=== PATIENT | female | born 1965 | race Caucasian/White ===

== ENCOUNTER 2017-03-16 07:20 | Observation (INO) | payer BC, OTHER ==
[2017-03-16] MEDS ORDERED: NITROGLYCERIN OINT 1 INCH/GM PACKET TOPICAL STA (07:42)
[2017-03-16] MEDS ORDERED: ASPIRIN 81 MG PO STA (07:42)
[2017-03-16] MEDS ORDERED: NITROGLYCERIN SL TABS 0.4 MG TAB SUBLINGUAL STA (07:42)
[2017-03-16] MEDS ORDERED: IPRATROPIUM-ALBUTEROL 3 ML NEB INHALATION STA (07:43)
--- NOTE | 2017-03-16 07:46 | ED ---
General Adult HPI - General Chief complaint: Extremity Problem,Nontraumatic Stated complaint: BACK AND LEG PAIN Time Seen by Provider: 03/16/17 07:30 Source: patient, RN notes reviewed Mode of arrival: ambulatory Limitations: no limitations - History of Present Illness Initial comments: Patient is a pleasant 51-year-old female presenting to the emergency Department with multiple complaints. Patient complains of a boil in her right genital region. Patient states this is been bothering her for a couple of days. Patient also complains of chronic back pain with radiation to her right leg. Patient states this is a chronic problem for her however somewhat worse than normal. No leg swelling. Patient also complains of some chest tightness. Patient states this started yesterday. Patient does feel short of breath. Patient believes her chest tightness may be from her shortness of breath. Patient feels like she is wheezing. Patient is a smoker. Patient has no known previous diagnosis of asthma or COPD. - Related Data Home Medications Medication Instructions Recorded Confirmed Ibuprofen [Motrin] 200 - 800 mg PO Q6HR PRN 03/16/17 03/16/17 Vitamin B Complex 1 cap PO DAILY 03/16/17 03/16/17 Allergies Allergy/AdvReac Type Severity Reaction Status Date / Time No Known Allergies Allergy Verified 03/16/17 08:13 Review of Systems ROS Statement: Those systems with pertinent positive or pertinent negative responses have been documented in the HPI. ROS Other: All systems not noted in ROS Statement are negative. Constitutional: Denies: fever Eyes: Denies: eye pain ENT: Denies: ear pain Respiratory: Reports: cough, dyspnea Cardiovascular: Reports: chest pain Endocrine: Reports: fatigue Gastrointestinal: Denies: abdominal pain Genitourinary: Denies: dysuria Musculoskeletal: Reports: back pain Skin: Reports: lesions Neurological: Denies: weakness Past Medical History Past Medical History: No Reported History History of Any Multi-Drug Resistant Organisms: None Reported Past Surgical History: Hysterectomy, Tonsillectomy, Tubal Ligation Past Psychological History: No Psychological Hx Reported Smoking Status: Current every day smoker Past Alcohol Use History: Rare Past Drug Use History: Marijuana General Exam Limitations: no limitations General appearance: alert, in no apparent distress Head exam: Present: atraumatic Eye exam: Present: normal appearance Neck exam: Present: normal inspection Respiratory exam: Present: wheezes Cardiovascular Exam: Present: regular rate, normal rhythm Expanded Peripheral pulses: 2+: Radial (R), Radial (L), Dorsalis Pedis (R), Dorsalis Pedis (L) GI/Abdominal exam: Present: soft. Absent: distended, tenderness External exam: Present: other (Lateral to the right labia there is a small pustule that patient opens as she is touching it. There is purulent discharge. RN Reanna is present.) Extremities exam: Present: normal inspection. Absent: pedal edema, calf tenderness Back exam: Present: tenderness (Tenderness to the lower lumbar spine.) Neurological exam: Present: alert Psychiatric exam: Present: normal affect, normal mood Skin exam: Present: normal color Course Vital Signs 03/16/17 03/16/17 03/16/17 07:26 08:02 08:05 Temperature 97.6 F Pulse Rate 99 81 Respiratory 18 18 Rate Blood Pressure 168/76 O2 Sat by Pulse 96 Oximetry 03/16/17 03/16/17 03/16/17 08:09 08:10 09:10 Temperature Pulse Rate 89 89 92 Respiratory 18 16 Rate Blood Pressure 146/81 118/57 O2 Sat by Pulse 95 99 Oximetry EKG Findings - EKG Comments: EKG Findings:: Normal sinus rhythm 93. CA 120. QRS 78. QT 336. QTc 442. Normal axis. Normal QRS. Nonspecific ST-T. Medical Decision Making - Medical Decision Making Patient reexamined and improved. Patient has continued wheezing however chest discomfort has resolved. Patient has continued lower back discomfort and requests pain medication for that. Case was discussed in detail with Dr. Bhatti, who will admit for Dr. Valenzuela. - Lab Data Result diagrams: 03/16/17 07:45 03/16/17 07:45 Lab Results 03/16/17 03/16/17 03/16/17 Range/Units 07:45 07:45 07:45 WBC 8.2 (3.8-10.6) k/uL RBC 4.92 (3.80-5.40) m/uL Hgb 15.7 (11.4-16.0) gm/dL Hct 47.6 H (34.0-46.0) % MCV 96.7 (80.0-100.0) fL MCH 31.9 (25.0-35.0) pg MCHC 33.0 (31.0-37.0) g/dL RDW 14.0 (11.5-15.5) % Plt Count 156 (150-450) k/uL Neutrophils % 74 % Lymphocytes % 14 % Monocytes % 7 % Eosinophils % 3 % Basophils % 1 % Neutrophils # 6.0 (1.3-7.7) k/uL Lymphocytes # 1.1 (1.0-4.8) k/uL Monocytes # 0.6 (0-1.0) k/uL Eosinophils # 0.3 (0-0.7) k/uL Basophils # 0.0 (0-0.2) k/uL PT (9.0-12.0) sec INR (<1.2) APTT (22.0-30.0) sec D-Dimer (<0.60) mg/L FEU Sodium 138 (137-145) mmol/L Potassium 4.1 (3.5-5.1) mmol/L Chloride 105 (98-107) mmol/L Carbon Dioxide 22 (22-30) mmol/L Anion Gap 11 mmol/L BUN 13 (7-17) mg/dL Creatinine 0.75 (0.52-1.04) mg/dL Est GFR (MDRD) Af Amer >60 (>60 ml/min/1.73 sqM) Est GFR (MDRD) Non-Af >60 (>60 ml/min/1.73 sqM) Glucose 88 (74-99) mg/dL Calcium 9.8 (8.4-10.2) mg/dL Magnesium 1.9 (1.6-2.3) mg/dL Total Bilirubin 0.6 (0.2-1.3) mg/dL AST 31 (14-36) U/L ALT 67 H (9-52) U/L Alkaline Phosphatase 99 (38-126) U/L Total Creatine Kinase 93 (30-135) U/L CK-MB (CK-2) 1.3 (0.0-2.4) ng/mL CK-MB (CK-2) Rel Index 1.4 Troponin I <0.012 (0.000-0.034) ng/mL NT-Pro-B Natriuret Pep pg/mL Total Protein 8.1 (6.3-8.2) g/dL Albumin 4.8 (3.5-5.0) g/dL 03/16/17 03/16/17 Range/Units 07:45 07:45 WBC (3.8-10.6) k/uL RBC (3.80-5.40) m/uL Hgb (11.4-16.0) gm/dL Hct (34.0-46.0) % MCV (80.0-100.0) fL MCH (25.0-35.0) pg MCHC (31.0-37.0) g/dL RDW (11.5-15.5) % Plt Count (150-450) k/uL Neutrophils % % Lymphocytes % % Monocytes % % Eosinophils % % Basophils % % Neutrophils # (1.3-7.7) k/uL Lymphocytes # (1.0-4.8) k/uL Monocytes # (0-1.0) k/uL Eosinophils # (0-0.7) k/uL Basophils # (0-0.2) k/uL PT 9.8 (9.0-12.0) sec INR 1.0 (<1.2) APTT 24.7 (22.0-30.0) sec D-Dimer 0.24 (<0.60) mg/L FEU Sodium (137-145) mmol/L Potassium (3.5-5.1) mmol/L Chloride (98-107) mmol/L Carbon Dioxide (22-30) mmol/L Anion Gap mmol/L BUN (7-17) mg/dL Creatinine (0.52-1.04) mg/dL Est GFR (MDRD) Af Amer (>60 ml/min/1.73 sqM) Est GFR (MDRD) Non-Af (>60 ml/min/1.73 sqM) Glucose (74-99) mg/dL Calcium (8.4-10.2) mg/dL Magnesium (1.6-2.3) mg/dL Total Bilirubin (0.2-1.3) mg/dL AST (14-36) U/L ALT (9-52) U/L Alkaline Phosphatase (38-126) U/L Total Creatine Kinase (30-135) U/L CK-MB (CK-2) (0.0-2.4) ng/mL CK-MB (CK-2) Rel Index Troponin I (0.000-0.034) ng/mL NT-Pro-B Natriuret Pep 49 pg/mL Total Protein (6.3-8.2) g/dL Albumin (3.5-5.0) g/dL - Radiology Data Radiology results: image reviewed (Chest x-ray shows no acute process) Disposition Clinical Impression: Acute exacerbation of chronic obstructive pulmonary disease (COPD), Chest pain , Pustule Disposition: ADMITTED IP TO THIS HOSP Referrals: Naya Silveira MD [Primary Care Provider] - 1-2 days Decision Time: 10:59
--- NOTE | 2017-03-16 08:05 | XR ---
EXAMINATION TYPE: XR chest 2V DATE OF EXAM: 03/16/2017 COMPARISON: 10/21/2010 HISTORY: Chest pain and low back pain TECHNIQUE: Frontal and lateral views of the chest are obtained. FINDINGS: There is no focal air space opacity, pleural effusion, or pneumothorax seen. The cardiac silhouette size is within normal limits. The osseous structures are intact. IMPRESSION: No acute cardiopulmonary process.
[2017-03-16 08:10] LABS: Basophils % (A) 1 %; CHCM 33.2; Eosinophils # (A) 0.3 k/uL (0-0.7); Eosinophils % (A) 3 %; HCT 47.6 % (34.0-46.0); HDW 2.26; HGB 15.7 gm/dL (11.4-16.0); Luc # (Auto) 0.16; Luc % (Auto) 2; Lymphocytes # (A) 1.1 k/uL (1.0-4.8); Lymphocytes % (A) 14 %; MCH 31.9 pg (25.0-35.0); MCV 96.7 fL (80.0-100.0); Mean Platelet Volume 8.3; Monocytes # (A) 0.6 k/uL (0-1.0); Monocytes % (A) 7 %; Neutrophils % (A) 74 %; RBC 4.92 m/uL (3.80-5.40); WBC 8.2 k/uL (3.8-10.6); WBC (Perox) 7.75
[2017-03-16 08:12] LABS: ALT 67 U/L (9-52); AST 31 U/L (14-36); Alkaline Phosphatase 99 U/L (38-126); Anion Gap 11 mmol/L; Blood Urea Nitrogen 13 mg/dL (7-17); Calcium 9.8 mg/dL (8.4-10.2); Carbon Dioxide 22 mmol/L (22-30); Chloride 105 mmol/L (98-107); Glucose 88 mg/dL (74-99); Magnesium 1.9 mg/dL (1.6-2.3); Non-African American GFR(MDRD) >60 (>60 ml/min/1.73 sqM); Potassium 4.1 mmol/L (3.5-5.1); Sodium 138 mmol/L (137-145); Total Bilirubin 0.6 mg/dL (0.2-1.3); Total Protein 8.1 g/dL (6.3-8.2)
[2017-03-16 08:18] LABS: Partial Thromboplastin Time 24.7 sec (22.0-30.0); Prothrombin Time 9.8 sec (9.0-12.0)
[2017-03-16 08:29] LABS: Creatine Kinase 93 U/L (30-135)
[2017-03-16 08:42] LABS: Creatine Kinase MB 1.3 ng/mL (0.0-2.4); Troponin I <0.012 ng/mL (0.000-0.034)
[2017-03-16] MEDS ORDERED: NITROGLYCERIN SL TABS 0.4 MG TAB SUBLINGUAL PRN (10:59)
[2017-03-16] MEDS ORDERED: methylPREDNISolone SOD SUCCI 125 MG/2 ML VIAL IV STA (10:59)
[2017-03-16] MEDS ORDERED: IPRATROPIUM-ALBUTEROL 3 ML NEB INHALATION PRN (10:59)
[2017-03-16] MEDS ORDERED: HYDROmorphone 1 MG/ML 1 ML SYRINGE IVP STA (11:00)
--- NOTE | 2017-03-16 13:06 | CONS ---
CONSULTATION ATTENDING: Dr. Silveira. Mrs. Gtz is a 51-year-old female with no prior documented history of coronary artery disease who presented with symptoms of back discomfort and right lower extremity discomfort. She is also complaining of dyspnea, cough, and chest discomfort. That is worse with deep breathing and coughing. The patient has no prior cardiac history. She is average in exercise tolerance. She has a history of chronic tobacco use and recent wheezing. Her discomfort is new and is respirophasic in pattern. She has no peripheral edema. No dizziness. No palpitation. No syncope. No clear PND, orthopnea, or peripheral edema. Her coronary risk factors are remarkable for chronic tobacco use. She is nonsmoker, nondiabetic, no hypertension and her lipid profile is not available. MEDICATIONS: Her medications include ibuprofen and vitamin D. REVIEW OF SYSTEMS: RESPIRATORY system: She had dyspnea on exertion and a cough and wheezing. She has been told that she has bronchitis in the past. GI system: No recent GI bleeding. No peptic ulcer disease. system: No dysuria or hematuria. Nervous system no stroke or seizure. PHYSICAL EXAMINATION: She is a 51-year-old female, alert and oriented. No apparent distress. Blood pressure 119/60 with a heart in 70s. HEAD: Normocephalic. Eyes sclerae anicteric. Neck good upstroke. No bruit. No jugular venous distention. Lungs with scattered wheezes bilaterally. Heart regular rate and rhythm S1, S2. No S3. No rub. ABDOMEN: Soft, nontender. Positive bowel sounds. No organomegaly. EXTREMITIES: No edema. Intact distal pulses. LAB DATA: Lab data revealed troponin less than 0.012. BUN and creatinine 13 and 0.75, hemoglobin of 15.7. EKG revealed a sinus mechanism, normal axis and intervals with a minor nonspecific ST-T wave changes. Her chest x-ray shows no acute infiltrate. IMPRESSION: 1. Chest discomfort, atypical for ischemic heart disease, musculoskeletal in etiology, related to her upper respiratory infection and possible bronchitis. 2. Back discomfort. 3. Chronic tobacco use. RECOMMENDATION: From the cardiac standpoint, I see no evidence of any cardiac abnormality at this time. I will obtain an echocardiogram with Doppler. Her back discomfort will be addressed by her primary care physician. I would expect she should be able to be discharged home soon and follow up as an outpatient with her primary care physician. Thank you for this consult. We will follow with you. MMODL / IJN: [id number] /
[2017-03-16] MEDS ORDERED: traMADol 50 MG TAB PO PRN (13:20)
[2017-03-16] MEDS ORDERED: DIAZEPAM 5 MG/ML 2 ML SYRINGE IVP PRN (13:21)
[2017-03-16] MEDS: KETOROLAC 30 MG/ML 1 ML VIAL IVP PRN ×2 (13:39→21:48)
[2017-03-16] MEDS: oxyCODONE-APAP 7.5-325MG 1 EACH TAB PO PRN ×2 (13:40→18:40)
[2017-03-16] MEDS: IPRATROPIUM-ALBUTEROL 3 ML NEB INHALATION SCH ×3 (13:47→19:59)
[2017-03-16 14:15] LABS: Creatine Kinase 79 U/L (30-135)
[2017-03-16 14:29] LABS: Troponin I <0.012 ng/mL (0.000-0.034)
[2017-03-16 14:32] LABS: Creatine Kinase MB 0.9 ng/mL (0.0-2.4)
[2017-03-16 15:25] VITALS: BMI 29.2
--- NOTE | 2017-03-16 15:35 | P.HPIM ---
History of Present Illness 51-year-old female patient came in with complaints of severe back pain 10 x 10 in severity and radicular pain radiating to back of the right thigh area going up to the heel. Patient does have chronic low back pain which is much severe unable to ablate unable to function because of which patient came to ER patient evidently was wheezing was in the is a smoker smokes about 10 cigars per day was admitted for severe exacerbation patient was complaining of some musculoskeletal chest pain from coughing because of which can't ER he was consulted although patient's chest pain is noncardiac and no further evaluation is being recommended from cardiology perspective. Patient wheezing improved as well. Patient will be started on prednisone which will help with her COPD possibility patient was never diagnosed with COPD he doesn't use oxygen at home. The prednisone will also help with inflammation from her low back radiculopathy denied any weakness and bilateral lower extremities although unable to move because of the severe pain did patient does have some shortness of breath Review of Systems REVIEW OF SYSTEMS: CONSTITUTIONAL: No fever, no malaise, no fatigue. HEENT: No recent visual problems or hearing problems. Denied any sore throat. CARDIOVASCULAR: No orthopnea, PND, no palpitations, no syncope. PULMONARY: no cough, no hemoptysis. GASTROINTESTINAL: No diarrhea, no nausea, no vomiting, no abdominal pain. Normoactive bowel sounds. NEUROLOGICAL: No headaches, no weakness, no numbness. HEMATOLOGICAL: Denies any bleeding or petechiae. GENITOURINARY: Denies any burning micturition, frequency, or urgency. MUSCULOSKELETAL/RHEUMATOLOGICAL: Mentioned above ENDOCRINE: Denies any polyuria or polydipsia. The rest of the 14-point review of systems is negative. Past Medical History Past Medical History: Osteoarthritis (OA), Pneumonia Additional Past Medical History / Comment(s): Chronic back pain, generalized arthritits. History of Any Multi-Drug Resistant Organisms: None Reported Past Surgical History: Hysterectomy, Tonsillectomy, Tubal Ligation, Uterine Ablation Additional Past Surgical History / Comment(s): D&C, hysteroscopy with endometrial ablation. Past Anesthesia/Blood Transfusion Reactions: No Reported Reaction Smoking Status: Current every day smoker - Past Family History Mother Family Medical History: Renal Disease Additional Family Medical History / Comment(s): Nephrolithiasis. Father Family Medical History: No Reported History Additional Family Medical History / Comment(s): Father is healthy Medications and Allergies Home Medications Medication Instructions Recorded Confirmed Type Ibuprofen [Motrin] 200 - 800 mg PO Q6HR PRN 03/16/17 03/16/17 History Vitamin B Complex 1 cap PO DAILY 03/16/17 03/16/17 History Allergies Allergy/AdvReac Type Severity Reaction Status Date / Time No Known Allergies Allergy Verified 03/16/17 08:13 Physical Exam Vitals: Vital Signs Temp Pulse Pulse Resp BP BP Pulse Ox 03/16/17 15:19 98.6 F 73 16 116/59 93 L 03/16/17 12:00 97.7 F 72 16 130/64 95 03/16/17 11:01 72 16 119/60 98 03/16/17 10:00 64 18 123/63 97 03/16/17 09:10 92 16 118/57 99 03/16/17 08:10 89 18 146/81 95 03/16/17 08:09 89 03/16/17 08:05 18 03/16/17 08:02 81 03/16/17 07:26 97.6 F 99 18 168/76 96 Intake and Output 03/16/17 03/16/17 03/16/17 06:59 14:59 22:59 Intake Total 580 Balance 580 Intake: Oral 580 Other: Voiding Method Toilet Weight 74.843 kg 74.843 kg Patient Weight 03/17/17 06:59 Weight 74.843 kg PHYSICAL EXAMINATION: GENERAL: The patient is alert and oriented x3, not in any acute distress. Well developed, well nourished. HEENT: Pupils are round and equally reacting to light. EOMI. No scleral icterus. No conjunctival pallor. Normocephalic, atraumatic. No pharyngeal erythema. No thyromegaly. CARDIOVASCULAR: S1 and S2 present. No murmurs, rubs, or gallops. PULMONARY: Chest is clear to auscultation, no wheezing or crackles. ABDOMEN: Soft, nontender, nondistended, normoactive bowel sounds. No palpable organomegaly. MUSCULOSKELETAL: No back tenderness but straight leg raising test is positive in the right lower extremity EXTREMITIES: No cyanosis, clubbing, or pedal edema. NEUROLOGICAL: Gross neurological examination did not reveal any focal deficits. SKIN: No rashes. Results CBC & Chem 7: 03/16/17 07:45 03/16/17 07:45 Labs: Abnormal Lab Results - Last 24 Hours (Table) 03/16/17 03/16/17 Range/Units 07:45 07:45 Hct 47.6 H (34.0-46.0) % ALT 67 H (9-52) U/L Thrombosis Risk Factor Assmnt - Choose All That Apply Any of the Below Risk Factors Present?: Yes Each Factor Represents 1 point: Age 41-60 years, Obesity (BMI >25) Other Risk Factors: No Other congenital or acquired thrombophilia - If yes, enter type in comment: No Thrombosis Risk Factor Assessment Total Risk Factor Score: 2 Thrombosis Risk Factor Assessment Level: Low Risk Assessment and Plan Plan: #1 chronic low back pain with radiculopathy and reticular symptoms: Patient will be started on ketorolac with Pepcid for GI prophylaxis along with [place] for pain physical therapy will be consulted, orthopedic surgery will be consulted as well. #2 chest pain: Musculoskeletal seconded to coughing. #3 possibly of COPD improved symptoms patient will be started on prednisone #4 nicotine abuse: Counseling was provided.
[2017-03-16] MEDS ORDERED: CEPHALEXIN 500 MG CAP PO SCH (16:00)
[2017-03-16] MEDS: AZITHROMYCIN 500 MG TAB PO SCH (17:23)
[2017-03-16] MEDS ORDERED: methylPREDNISolone SOD SUCCI 125 MG/2 ML VIAL IV SCH (18:00)
--- NOTE | 2017-03-16 18:05 | P.CNOR ---
History of Present Illness - [facility] Consult date: 03/16/17 Requesting physician: Maribel Bhatti Consult reason: low back pain, other (Right lower extremity radiculopathy) History of present illness: Patient is a pleasant 51-year-old female who is seen and examined at bedside after consultation was placed for further evaluation for low back pain and right lower extremity radiculopathy. Patient presented to the emergency department for further evaluation. In the emergency department, she was experiencing some wheezing and medicine states patient is a smoker who smokes [id number] cigars per day. The chest pain was thought to be musculoskeletal and noncardiac in cause. She states she is known have back pain for significant number of years that is chronic and she has dealt with it without seeking further treatment. She states over the past 7 days she has had significant pain radiating from the lumbar spine, over the right hip, down the posterior thigh, down the posterior calf, to the heel of the right foot. She denies any left lower extremity radiculopathy. She denies any specific lower extremity weakness bilaterally. She states she is unable to weight-bear on the right lower extremity due to her pain. She has difficulty changing positions while lying in bed due to significant back pain. She states she has not previously sought evaluation for her lumbar spine or lower extremity pain. She denies any recent falls, accidents or injuries. She states she retired this past October due to her ongoing back pain. She is being seen and examined by medicine who also consulted cardiology. Medicine states they feel she may have COPD and started her on prednisone which they felt may help with her possible COPD as well as her right lower extremity radiculopathy. Past Medical History Past Medical History: Osteoarthritis (OA), Pneumonia Additional Past Medical History / Comment(s): Chronic back pain, generalized arthritits. History of Any Multi-Drug Resistant Organisms: None Reported Past Surgical History: Hysterectomy, Tonsillectomy, Tubal Ligation, Uterine Ablation Additional Past Surgical History / Comment(s): D&C, hysteroscopy with endometrial ablation. Past Anesthesia/Blood Transfusion Reactions: No Reported Reaction Smoking Status: Current every day smoker - Past Family History Mother Family Medical History: Renal Disease Additional Family Medical History / Comment(s): Nephrolithiasis. Father Family Medical History: No Reported History Additional Family Medical History / Comment(s): Father is healthy Medications and Allergies Home Medications Medication Instructions Recorded Confirmed Type Ibuprofen [Motrin] 200 - 800 mg PO Q6HR PRN 03/16/17 03/16/17 History Vitamin B Complex 1 cap PO DAILY 03/16/17 03/16/17 History Allergies Allergy/AdvReac Type Severity Reaction Status Date / Time No Known Allergies Allergy Verified 03/16/17 08:13 Physical Examination Physical exam: Patient is awake, alert, and oriented 3 Vital signs stable Good chest excursion with deep inspiration and expiration Abdomen soft nontender Examination of lumbar spine reveals skin is intact with no abrasions, lacerations, or bruises; no erythema, purulence or signs of infection No significant pain with palpation along the midline of the lumbar spine Evidence of a tattoo along the midline of the lumbar spine, over the upper right buttock, and over the right anterior ankle Dorsiflexion, plantarflexion, and extensor hallucis longus positive sustained bilaterally Lower extremity strength 5/5 bilaterally Patellar reflex 2+ bilaterally and Achilles reflexes 1+ bilaterally No lower extremity hyperreflexia bilaterally Positive Lasegue's test on the right Negative Lasegue's test on the left No signs or symptoms of DVT; no calf pain No pain with internal and external rotation of the hips bilaterally Neurovascularly intact Results - Labs Labs: Abnormal Lab Results - Last 24 Hours (Table) 03/16/17 03/16/17 Range/Units 07:45 07:45 Hct 47.6 H (34.0-46.0) % ALT 67 H (9-52) U/L H & H 03/16/17 Range/Units 07:45 Hgb 15.7 (11.4-16.0) gm/dL Hct 47.6 H (34.0-46.0) % Coagulation 03/16/17 Range/Units 07:45 INR 1.0 (<1.2) Result Diagrams: 03/16/17 07:45 03/16/17 07:45 Assessment and Plan (1) Low back pain Current Visit: Yes Status: Acute Code(s): M54.5 - LOW BACK PAIN SNOMED Code(s): 397111477 (2) Lumbar back pain with radiculopathy affecting right lower extremity Current Visit: Yes Status: Acute Code(s): M54.17 - RADICULOPATHY, LUMBOSACRAL REGION SNOMED Code(s): 708720943 (3) Decreased ambulation status Current Visit: Yes Status: Acute Code(s): R68.89 - OTHER GENERAL SYMPTOMS AND SIGNS SNOMED Code(s): 516780302 (4) Current every day smoker Current Visit: Yes Status: Acute Code(s): F17.200 - NICOTINE DEPENDENCE, UNSPECIFIED, UNCOMPLICATED SNOMED Code(s): 728373150 Plan: Assessment: Low back pain Right lower extremity radiculopathy Difficulty with ambulation due to pain in the right lower extremity Current every day smoker; possible COPD Plan: 1. After further evaluation of the patient and discussion with the patient, we will currently planned to obtain x-rays of lumbosacral spine and pelvis for further evaluation. Patient is experiencing significant right lower extremity radiculopathy with low back pain that has been significant for the past 7 days. We will plan to continue with conservative treatment with medicine to see if her symptoms can improve. We will plan to stop the prednisone per medicine and start her on Solu-Medrol 80 mg IV q8 hours. A stronger steroid may help provide better control her symptoms. If her symptoms are able to improve to where she would be able to be discharged, we would plan to discharge her on oral prednisone taper and would plan to follow her up in the outpatient setting for further evaluation and treatment. If her symptoms do not improve over time , we may then plan to obtain an MRI lumbar spine for further evaluation. If she fails to improve with medicine while here in the hospital, we may plan to order an MRI for further evaluation prior to her discharge. We will follow up for further evaluation tomorrow following the x-ray results of the lumbosacral spine and pelvis. 2. Continue pain control 3. Medicine to continue following the patient closely 4. I have discussed this patient detail with Dr. Dav Varela he agrees with plan Time with Patient: Less than 30
--- NOTE | 2017-03-16 19:19 | XR ---
EXAMINATION TYPE: XR pelvis AP view DATE OF EXAM: 03/16/2017 COMPARISON: 12/24/2011 HISTORY: Pain TECHNIQUE: Single view FINDINGS: The pelvic ring is intact. Proximal femurs and hip joints are intact. Sacroiliac joints are normal. IMPRESSION: Normal pelvis. No change.
--- NOTE | 2017-03-16 19:20 | XR ---
EXAMINATION TYPE: XR lumbosacral spine min 4V DATE OF EXAM: 03/16/2017 COMPARISON: NONE HISTORY: Pain TECHNIQUE: 5 views FINDINGS: The lumbar vertebra have normal alignment. There is anterior spurring at L5-S1. Abdominal a angeli is atheromatous. Disc spaces are fairly normal. There is no compression fracture. Sacroiliac kirstin nts are intact. IMPRESSION: Mild spondylosis at L5-S1. No fracture.
[2017-03-16 20:15] LABS: Creatine Kinase 83 U/L (30-135)
[2017-03-16 20:28] LABS: Creatine Kinase MB 0.9 ng/mL (0.0-2.4); Troponin I <0.012 ng/mL (0.000-0.034)
[2017-03-16] MEDS ORDERED: predniSONE 20 MG TAB PO SCH (21:00)
[2017-03-16 21:05] LABS: Glucose,Whole Blood 109 mg/dL (75-99)
[2017-03-16] MEDS: FAMOTIDINE 20 MG TAB PO SCH (21:50)
[2017-03-17] MEDS: methylPREDNISolone SOD SUCCI 125 MG/2 ML VIAL IV SCH ×3 (00:30→16:49)
[2017-03-17] MEDS: oxyCODONE-APAP 7.5-325MG 1 EACH TAB PO PRN ×3 (03:39→16:49)
[2017-03-17] MEDS: IPRATROPIUM-ALBUTEROL 3 ML NEB INHALATION SCH ×3 (07:04→17:36)
[2017-03-17 07:11] LABS: Anion Gap 9 mmol/L; Blood Urea Nitrogen 21 mg/dL (7-17); Calcium 9.5 mg/dL (8.4-10.2); Carbon Dioxide 23 mmol/L (22-30); Chloride 106 mmol/L (98-107); Cholesterol 264 mg/dL (<200); Glucose 129 mg/dL (74-99); HDL Cholesterol 52 mg/dL (40-60); Non-African American GFR(MDRD) >60 (>60 ml/min/1.73 sqM); Potassium 4.7 mmol/L (3.5-5.1); Sodium 138 mmol/L (137-145)
[2017-03-17] MEDS: AZITHROMYCIN 500 MG TAB PO SCH (07:36)
[2017-03-17] MEDS: FAMOTIDINE 20 MG TAB PO SCH (07:36)
[2017-03-17 07:45] LABS: Glucose,Whole Blood 210 mg/dL (75-99)
[2017-03-17 08:13] LABS: CH 32.1; CHCM 32.6; HCT 42.3 % (34.0-46.0); HGB 13.8 gm/dL (11.4-16.0); MCH 32.3 pg (25.0-35.0); MCHC 32.6 g/dL (31.0-37.0); Mean Platelet Volume 8.6; RBC 4.27 m/uL (3.80-5.40); RDW 12.5 % (11.5-15.5); WBC 5.1 k/uL (3.8-10.6)
--- NOTE | 2017-03-17 08:52 | P.PN ---
Progress Note - Text Progress Note Date: 03/17/17 Patient is a pleasant 51-year-old female who is seen and examined at bedside for follow-up evaluation this morning for further evaluation for low back pain and right lower extremity radiculopathy. Since being seen and examined yesterday, she has not had any significant improvement of her symptoms. She has , however, been able to ambulate the hallways this morning. She did receive a dose of Solu-Medrol IV at midnight and another dose this morning at 8:00 AM. Overall, she does not feel significantly better as compared to last evening. She continues to experience significant pain radiating from the lumbar spine, over the right hip, down the posterior thigh, down the posterior calf, to the heel of the right foot. She denies any left lower extremity radiculopathy. She denies any specific lower extremity weakness bilaterally. She states she has difficulty weightbearing on the right lower extremity due to her pain. She has difficulty changing positions while lying in bed due to significant back pain. She states she has not previously sought evaluation for her lumbar spine or lower extremity pain. She denies any recent falls, accidents or injuries. She states she retired this past October due to her ongoing back pain. She is being seen and examined by medicine who also consulted cardiology. Patient was seen and examined by cardiology and nursing states cardiology has cleared the patient from cardiac standpoint. Medicine states they feel she may have COPD and started her on prednisone which they felt may help with her possible COPD as well as her right lower extremity radiculopathy. Since being seen and examined last evening, x-rays of the lumbosacral spine pelvis were performed. Physical exam: Patient is awake, alert, and oriented 3 Vital signs stable Good chest excursion with deep inspiration and expiration Abdomen soft nontender Examination of lumbar spine reveals skin is intact with no abrasions, lacerations, or bruises; no erythema, purulence or signs of infection No significant pain with palpation along the midline of the lumbar spine Evidence of a tattoo along the midline of the lumbar spine, over the upper right buttock, and over the right anterior ankle Dorsiflexion, plantarflexion, and extensor hallucis longus positive sustained bilaterally Lower extremity strength 5/5 bilaterally Patellar reflex 2+ bilaterally and Achilles reflexes 1+ bilaterally No lower extremity hyperreflexia bilaterally Positive Lasegue's test on the right Negative Lasegue's test on the left No signs or symptoms of DVT; no calf pain No pain with internal and external rotation of the hips bilaterally Neurovascularly intact Pertinent studies: X-rays lumbosacral spine with flexion and extension, AP, and lateral views: L5- S1 severe degenerative disc disease with anterior osteophytic spurring and spondylosis; overall alignment appears be adequately maintained; no evidence of spondylolisthesis; no evidence of vertebral body compression fracture X-ray of the pelvis: Hip joint space and sacroiliac joint space appears to be adequately maintained bilaterally; no evidence of fracture dislocation Assessment: Low back pain Right lower extremity radiculopathy L5-S1 severe degenerative disc disease with anterior osteophytic spurring and spondylosis Difficulty with ambulation due to pain in the right lower extremity Current every day smoker; possible COPD Plan: Monet. Nicholas new currently planning to continue with conservative treatment x-rays of the lumbosacral spine and pelvis are reviewed and discussed in detail with the patient. She does have significant degenerative disc disease with anterior osteophytic spurring and spondylosis at L5-S1. Given her right lower extremity radiculopathy symptoms, her degenerative changes at this level do correlate well with her symptoms of low back pain radiating to the right lateral hip, down the posterior lateral thigh, posterior calf, and into the heel of the right foot. We discussed plan of care in significant detail. She has received 2 doses of Solu-Medrol 80 mg. The last dose was less than one hour ago. We discussed at this time given the acute severity of her symptoms, we will continue with conservative treatment to see if her symptoms could be alleviated through medication and time. We will currently planned to continue with Solu- Medrol 80 mg IV q8 hours. We again discussed that her symptoms are able to improve throughout the day she will be clear to be discharged home, today, from an orthopedic spine standpoint. We would plan to discharge her on oral prednisone taper and would plan to follow her up in the outpatient setting for further evaluation and treatment. It would be okay for medicine to prescribe this prednisone taper at discharge. If her symptoms do not improve over time, we may then plan to obtain an MRI lumbar spine for further evaluation. If she fails to improve with medicine while here in the hospital, we may plan to order an MRI for further evaluation prior to her discharge. We will continue to follow the patient. If medicine feels patient is cleared for discharge home today and would like to discharge the patient, we will plan to have a follow-up appointment set for outpatient evaluation. After further discussion, patient feels this is a good plan of care. 2. Continue pain control 3. Medicine to continue following the patient closely 4. I have discussed this patient detail with Dr. Dav Varela and he agrees with plan
[2017-03-17] MEDS ORDERED: ASPIRIN 81 MG PO SCH (09:00)
[2017-03-17] MEDS ORDERED: ASPIRIN 325 MG TAB PO SCH (09:00)
[2017-03-17] MEDS ORDERED: DIAZEPAM 5 MG TAB PO PRN (09:48)
--- NOTE | 2017-03-17 10:31 | PN ---
PROGRESS NOTE Ms. Gtz is a 51-year-old female who presented with symptoms of chest discomfort, that was suggestive of noncardiac etiology. Her main complaint this morning is back and right leg discomfort. She denies any chest discomfort. Her breathing has been stable. She is limited in her activity because of her leg pain. She was evaluated by the orthopedics department yesterday and diagnosed with right lower extremity radiculopathy and was started on Solu-Medrol. She continues to be on albuterol, aspirin, and the methyl prednisolone. PHYSICAL EXAMINATION: Blood pressure 123/60 with a heart rate in the 70s. LUNGS: No wheezes. HEART: Regular rate and rhythm, S1, S2. No S3. No rub. ABDOMEN: Soft, nontender. EXTREMITIES: No edema. LAB DATA: Cholesterol 264 with an LDL of 175. IMPRESSION: 1. Back discomfort with radiculopathy. 2. Severe hyperlipidemia treated as an outpatient. 3. Chronic tobacco use. 4. Chest discomfort, atypical for ischemic heart disease. RECOMMENDATION: From the cardiac standpoint, I will add statin to her regimen. Will see her on an as- needed basis. Please feel free to call us for any questions. MMODL / IJN: [id number] /
[2017-03-17] MEDS: KETOROLAC 30 MG/ML 1 ML VIAL IVP PRN (10:56)
--- NOTE | 2017-03-17 11:21 | ECHOF ---
Referral Reason: MEASUREMENTS -------- HEIGHT: 160.0 cm WEIGHT: 74.8 kg BP: 119/50 IVSd: 1.3 cm (0.6 - 1.1) LVIDd: 3.8 cm (3.9 - 5.3) LVPWd: 1.1 cm (0.6 - 1.1) IVSs: 1.4 cm LVIDs: 3.3 cm LVPWs: 1.0 cm LA Diam: 3.6 cm (2.7 - 3.8) Ao Diam: 2.5 cm (2.0 - 3.7) AV Cusp: 1.7 cm (1.5 - 2.6) LA Diam: 3.5 cm (2.7 - 3.8) MV EXCURSION: 12.842 mm (> 18.000) MV EF SLOPE: 66 mm/s (70 - 150) EPSS: 0.9 cm MV E Sukhdev: 0.77 m/s MV DecT: 274 ms MV A Sukhdev: 0.96 m/s MV E/A Ratio: 0.81 RAP: 5.00 mmHg RVSP: 16.41 mmHg TAPSE: 1.91 cm FINDINGS -------- Sinus rhythm. This was a technically adequate study. The left ventricular size is normal. There is mild concentric left ventricular hypertrophy. Overa ll left ventricular systolic function is normal with, an EF between 55 - 60 %. The right ventricle is normal in size. The left atrial size is normal. The right atrial size is normal. The aortic valve is trileaflet, and appears structurally normal. No aortic stenosis or regurgitation. The mitral valve is normal. Mild tricuspid regurgitation present. There is no evidence of pulmonary hypertension. The right v entricular systolic pressure, as measured by Doppler, is 16.41mmHg. The pulmonic valve was not well visualized. There is no pulmonic regurgitation present. The aortic root size is normal. There is no pericardial effusion. CONCLUSIONS -------- 1. Sinus rhythm. 2. This was a technically adequate study. 3. There is mild concentric left ventricular hypertrophy. 4. Overall left ventricular systolic function is normal with, an EF between 55 - 60 %. 5. The left atrial size is normal. 6. The aortic valve is trileaflet, and appears structurally normal. No aortic stenosis or regurgitati on. 7. The mitral valve is normal. 8. Mild tricuspid regurgitation present. 9. There is no evidence of pulmonary hypertension. 10. There is no pulmonic regurgitation present. 11. The aortic root size is normal. 12. There is no pericardial effusion. CHUCKER: Najma Hutton RDCS
[2017-03-17 12:14] LABS: Glucose,Whole Blood 182 mg/dL (75-99)
[2017-03-17] MEDS: INSULIN LISPRO (humaLOG) 300 UNIT/3 ML VIAL SQ SCH ×2 (12:59→18:20)
[2017-03-17 16:10] VITALS: BP 124/70; RESP 16; TEMP 97.8
[2017-03-17 16:58] LABS: Glucose,Whole Blood 133 mg/dL (75-99)
[2017-03-17 17:20] VITALS: PULSE 73
--- NOTE | 2017-03-17 17:48 | P.DS ---
Providers Date of admission: 03/16/17 11:00 03/16/2017 Expected date of discharge: 03/17/17 Attending physician: Maribel Bhatti Consults: 03/16/17 13:23 Consult Physician Routine Consulting Provider: Girish Varela Consult Reason/Comments: Back pain Do you want consulting provider notified?: Yes Primary care physician: Jordana Wild [facility] Course: This is a 51-year-old female who presents the emergency room with chief complaints of severe back pain she rated 10 tenths intensityradicular pain radiating to back of the right thigh area going up to the heel. Patient does have chronic low back pain which is much severe unable to ablate unable to function because of which patient came to ER patient evidently was wheezing was in the is a smoker smokes about 10 cigarettes per day was admitted for severe exacerbation patient was complaining of some musculoskeletal chest pain from coughing because of which patient was given IV Solu-Medrol along with breathing treatments her wheezing improved Patient will be started on prednisone which will help with her COPD possibility patient was never diagnosed with COPD he doesn't use oxygen at home patient does not regular follow-up with a physician nor 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 The prednisone will also help with inflammation from her low back radiculopathy denied any weakness and bilateral lower extremities although unable to move because of the severe pain did patient does have some shortness of breath Plan: #1 chronic low back pain with radiculopathy and reticular symptoms: Orthopedic surgery seen the patient recommended conservative treatment with use of traditional pain medication along with steroids and to follow-up with outpatient setting for further evaluation and treatment recommended at her her symptoms worsen or do not improve that a MRI will be done inpatient, symptoms did improve and her laboratory status increased she was discharged home in stable condition #2 chest pain: Musculoskeletal seconded to coughing. #3 possibly of COPD improved symptoms patient will be started on prednisone she was given breathing treatments at home instructed to follow-up with primary care physician for outpatient pulmonary function test to determine degree of COPD and to be placed on the proper treatment for COPD presenting to the gold standard #4 nicotine abuse: Rated at 8 minutes was spent counseling the patient on impact of smoking and overall health she was encouraged to quit she was instructed to follow-up with primary care physician for further assistance and means of pharmacological methods in order to quit. Plan - Discharge Summary Discharge Rx Participant: No New Discharge Prescriptions: New Aspirin 81 mg PO DAILY #30 chew Atorvastatin [Lipitor] 40 mg PO DAILY #30 tab Azithromycin [Zithromax] 500 mg PO DAILY tab Ipratropium-Albuterol Nebulize [Duoneb 0.5 mg-3 mg/3 ml Soln] 3 ml INHALATION RT-QID PRN #10 ampul.neb PRN Reason: Shortness Of Breath methylPREDNISolone Dose Pack [Medrol Dose Pack] 4 mg PO DIRECTED #21 package Continue Vitamin B Complex 1 cap PO DAILY Ibuprofen [Motrin] 200 - 800 mg PO Q6HR PRN PRN Reason: Pain Discharge Medication List Ibuprofen [Motrin] 200 - 800 mg PO Q6HR PRN 03/16/17 [History] Vitamin B Complex 1 cap PO DAILY 03/16/17 [History] Aspirin 81 mg PO DAILY #30 chew 03/17/17 [Rx] Atorvastatin [Lipitor] 40 mg PO DAILY #30 tab 03/17/17 [Rx] Azithromycin [Zithromax] 500 mg PO DAILY tab 03/17/17 [Rx] Ipratropium-Albuterol Nebulize [Duoneb 0.5 mg-3 mg/3 ml Soln] 3 ml INHALATION RT -QID PRN #10 ampul.neb 03/17/17 [Rx] methylPREDNISolone Dose Pack [Medrol Dose Pack] 4 mg PO DIRECTED #21 package 03/17/17 [Rx] Follow up Appointment(s)/Referral(s): Abhishek Vidal MD [STAFF PHYSICIAN] - As Needed Naya Silveira MD [Primary Care Provider] - 1-2 days Zion Cardozo PAC [PHYSICIAN FAA CERTIFIED POWERPLANT MECHANIC] - 2 Weeks (Patient may follow-up with Zion Cardozo PA-C or Dr. Dav Varela at [facility] in 2 weeks following discharge. ) Activity/Diet/Wound Care/Special Instructions: Patient was given a prescription for front-wheeled walker patient is to follow- up with physical occupational therapy, patient follow up with orthospine for possible outpatient MRI if conventional medical therapy spell Discharge Disposition: HOME SELF-CARE
[2017-03-18] MEDS ORDERED: ATORVASTATIN 40 MG TAB PO SCH (09:00)
== END 2017-03-17 18:23 | disposition home or self-care (01) ==
LOC: EC 07:20 → 3OBS 11:00
PROVIDERS: ADMIT Internal Medicine; ATTEND Internal Medicine
DX: G89.29 Other chronic pain (principal); M54.5 Low back pain; R07.89 Other chest pain; R06.02 Shortness of breath; R06.2 Wheezing; R05 Cough; M51.17 Intervertebral disc disorders with radiculopathy, lumbosacral region; M47.27 Other spondylosis with radiculopathy, lumbosacral region; E78.5 Hyperlipidemia, unspecified; F17.210 Nicotine dependence, cigarettes, uncomplicated; M19.90 Unspecified osteoarthritis, unspecified site; E66.9 Obesity, unspecified; Z68.25 Body mass index [BMI] 25.0-25.9, adult; Z71.6 Tobacco abuse counseling; Z87.01 Personal history of pneumonia (recurrent)
CPT/HCPCS: 99284 ×2; 96374 ×2; 96375 ×2; 96376 ×2; 36415; 94640 ×3; 94760; 93005; 93306; 97161; 97165; 85379; 83880; 80061; 80053; 80048; 82550; 82553; 83735; 84484; 85025; 85027; 85610; 85730; 83036; 71020; 72110; 72170; G0378 ×2; J2930; J3360; J1885 ×2; J1170

== ENCOUNTER → 2024-09-26 | Outpatient (CLI) | payer OTHER ==
--- NOTE | 2024-09-26 13:18 | CTL ---
EXAMINATION TYPE: CT Low Dose Lung DATE OF EXAM ORDERED: 09/26/2024 COMPARISON: Chest radiograph 01/13/2023 CLINICAL INDICATION: Female, 59 years old with history of Z00.00 F17.200F17.210 Z12.2; PHH, SMOKER, L fabien cancer screening, History of Smoking/tobacco use. TECHNIQUE: Low dose computed tomography scan was performed through the chest at 1 mm thick sections a nd reconstructed images in multiple planes at 1 mm and [address] DLP: 130.[address] CTDI: 3.7 mGy Automated exposure control for dose reduction was used. CT DIAGNOSTIC QUALITY: Satisfactory FINDINGS: Nodules: No clinically significant pulmonary nodule. LUNGS: COPD: Severity: None Fibrosis: Severity: None Lymph nodes: None Other findings: Linear atelectasis within the lingula. 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 Mild atherosclerotic calcif ication of the aorta and its branches. IMPRESSION: No clinically significant pulmonary nodule. CT LUNG RAD AND CT CHEST RECOMMENDATION: Lung-Rad 1 Negative: Continue annual screening with LDCT in 12 months. S Modifier (other clinically significant findings): None [facility], , 09/26/2024 1:16 PM
--- NOTE | 2024-09-26 13:23 | MM ---
Reason for Exam: Screening (asymptomatic). Last mammogram was performed 12 year(s) and 6 month(s) ago. Patient History: Menarche at age 12. First Full-Term at age 22. Hysterectomy at age 40. Risk Values: Nereida 5 year model risk: 1.3%. NCI Lifetime model risk: 7.7%. Prior Study Comparison: 06/16/1997 Bilateral Diagnostic Mammogram, [facility]. 08/14/2006 Bilateral Screening Mammogram, [facility]. 04/09/2012 Bilateral Screening Mammogram, [facility]. Tissue Density: There are scattered areas of fibroglandular density. Findings: Analyzed By CAD. Right breast: There is no suspicious group of microcalcifications or new suspicious mass. Left breast: There is no suspicious group of microcalcifications or new suspicious mass. Overall Assessment: Negative, BI-RAD 1 Management: Screening Mammogram of both breasts in [address] [facility] will attempt to contact patient to return for supplemental views and ultrasound if indicated. Patient should continue monthly self-breast exams. A clinical breast exam by your physician is recommended on an annual basis. This exam should not preclude additional follow-up of suspicious palpable abnormalities. Note on Nereida scores and lifetime risk: 1. A Nereida score greater than 3% is considered moderate risk. If this is the case, consider specialist referral to assess eligibility for a risk reducing agent. 2. If overall lifetime risk for the development of breast cancer is 20% or higher, the patient may qualify for future screening with alternating mammogram and breast MRI. 09/26/2024 1:19 PM,09/26/2024 12:58 PM,[facility] Gt screening mammo w CAD,[id number] [facility], , 09/26/2024 1:21 PM. Electronically signed and approved by: Morris Bhakta DO
--- NOTE | 2024-09-26 20:20 | BD ---
EXAMINATION TYPE: Axial Bone Density DATE OF EXAM: 09/26/2024 CLINICAL HISTORY: 59 years old Female. ICD-10 CODE: Z00.00 F17.200 Z78.0 , Additional History: Height: 60 Weight: 173.8 FRAX RISK QUESTIONS: Alcohol (3 or more units per day): no Family History (Parent hip fracture): father Glucocorticoids (More than 3mos): no (Ex: prednisone, prednisolone, methylprednisolone, dexamethasone, and hydrocortisone). History of Fracture in Adulthood: rt wrist, toe Secondary Osteoporosis: 1. Type 1 Diabetes: no 2. Hyperthyroidism: no 3. Menopause before 45: yes 4. Malnutrition: no 5. Chronic liver disease: no Rheumatoid Arthritis: yes Current Tobacco Use: yes RISK FACTORS HISTORY OF: Hip Fracture (Right/Left): no Spine Fracture: no History of Wrist Fracture: RT Wrist When: 2018 Surgery to Spine/Hip(right/left)/Wrist (right/left): no MEDICATIONS: Thyroid Medications: no Osteoporosis Medications: no EXAM MEASUREMENTS: Bone mineral densitometry was performed using the [employer] System. Bone mineral density as measured about the Lumbar spine is: ----- L1-L4(G/cm2): 0.911 T Score Values are as follows: ----- L1: -2.5 ----- L2: -3.4 ----- L3: -2.3 ----- L4: -1.4 ----- L1-L4: 2.2 Z Score Values are as follows: ----- L1: -2.1 ----- L2: -2.9 ----- L3: -1.8 ----- L4: -0.9 ----- L1-L4: -1.7 Baseline Study Bone mineral density about the R hip (g/cm2): 0.860 Bone mineral density about the L hip (g/cm2): 0.944 T Score values are as follows: -----R Neck: -1.4 -----L Neck: -1.3 -----R Total: -1.2 -----L Total: -0.5 Z Score values are as follows: -----R Neck: -0.6 -----L Neck: -0.5 -----R Total: -0.7 -----L Total: -0.1 Baseline Study FRAX%s: The graph provided illustrates a 27.7hance for a major osteoporotic fx and a 2.3chance for th e hips probability for fx in 10 years time. IMPRESSION: Osteoporosis (T Score less than -2.5). There is increased fracture risk and therapy is usually indicated based on age. Re-Screen 1-2 years. NOTE: T-SCORE=SD OF THE YOUNG ADULT MEAN. [facility], , 09/26/2024 8:18 PM
== END | disposition home or self-care (01) ==
LOC: RADCTMAIN 12:22
PROVIDERS: ATTEND Family Medicine
DX: Z12.31 Encounter for screening mammogram for malignant neoplasm of breast (principal); Z12.2 Encounter for screening for malignant neoplasm of respiratory organs; Z00.00 Encounter for general adult medical examination without abnormal findings; F17.210 Nicotine dependence, cigarettes, uncomplicated; R92.323 Mammographic fibroglandular density, bilateral breasts; M81.0 Age-related osteoporosis without current pathological fracture; Z78.0 Asymptomatic menopausal state
CPT/HCPCS: 71271; 77067; 77080